=== PATIENT | male | born 1975 | race Caucasian/White ===

== ENCOUNTER 2022-05-03 15:03 | Emergency (ER) | payer BC ==
[2022-05-03] MEDS ORDERED: SODIUM CHLORIDE 0.9% 500 ML INFUS.BAG IV ONE ×2 (15:06→15:21)
[2022-05-03 15:20] VITALS: TEMP 98.7; BMI 30.1
[2022-05-03 15:42] LABS: HEMATOCRIT 44.7 % (35.4-49); HEMOGLOBIN 15.5 G/dL (11.7-16.9); MCH 30.5 pg (25.7-33.7); MCHC 34.7 g/dl (32.0-35.9); MEAN CELL VOLUME 87.9 fl (80-96); MEAN PLT VOLUME 7.7 fl (7.5-11.1); PLATELET COUNT 246.1 10^3/uL (134-434); RBC 5.09 10^6/uL (4.00-5.60); RDW 14.2 % (11.9-15.9); WHITE BLOOD COUNT 7.3 10^3/uL (4.0-10.8)
[2022-05-03 15:49] LABS: ALBUMIN 4.4 g/dl (3.4-5.0); CALCIUM 8.4 mg/dl (8.5-10); TOT PROT 6.9 g/dl (6.4-8.2)
[2022-05-03 15:51] LABS: PLATELET ESTIMATE ADEQUATE
[2022-05-03 16:06] VITALS: BP 104/87; PULSE 62; RESP 18
== END 2022-05-03 16:35 | disposition home or self-care (01) ==
LOC: FER 15:03
DX: U07.1 COVID-19 (principal); I95.1 Orthostatic hypotension
CPT/HCPCS: 36415; 80053; 85027; 93005; 99284-25

== ENCOUNTER 2022-06-05 09:44 | Day surgery (SDC) | payer BC ==
[2022-05-31 14:52] VITALS: BMI 29.4
[~2022-06-05 09:44] MED LIST: LACTATED RINGERS SOLUTION 1,000 ML IV SCH
[2022-06-05 11:16] VITALS: RESP 20; TEMP 97.1
[2022-06-05 11:33] VITALS: BP 100/66; PULSE 75
== END 2022-06-05 11:30 | disposition home or self-care (01) ==
LOC: FASU-ENDO 09:44
PROVIDERS: ATTEND Internal Medicine Gastroenterology
PROC: 0DJD8ZZ Inspection of Lower Intestinal Tract, Via Natural or Artificial Opening Endoscopic (ICD-10-PCS; principal; 2022-06-05 10:47)
DX: Z12.11 Encounter for screening for malignant neoplasm of colon (principal); Z86.010 Personal history of colon polyps; Z83.71 Family history of colonic polyps